=== PATIENT | male | born 1960 | race Caucasian/White ===

== ENCOUNTER → 2023-08-30 12:53 | Outpatient (BNVA) | payer SELFPAY | PROVIDERS: PCP Nurse Practitioner Family; Visit Provider Physician Assistant Surgical ==

== ENCOUNTER 2023-09-17 09:10 | Outpatient (AMB) | payer BC, SELFPAY ==
--- NOTE | 2023-09-17 09:13 | MHC.OFFVISWM ---
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 He heard about the program from his 's sister. His goal is to lose weight and achieve a healthy lifestyle. He reports first being concerned about his weight over the last 3-4 years, highest weight to date was 261. Current weight is 251.4 pounds with a BMI of 36.1. He has tried multiple methods of weight loss including fad iets, weight watchers without permanent results. He lives with his . He does not currently work. He wakes at:?730 am, and goes to bed at?1030 pm. Dinner is at 630 pm. Breakfast: skip, or banana or eggs AM snack: skip Lunch: salad w tuna or egg salad, needle grinder PM snack: skip Dinner: salmon, chicken, veg, rice, potato After dinner: salted almonds, dried fruit, apple Other snacks: rare ice cream Liquids: 24 oz water, 16 oz seltzer, rare 12 oz diet soda, no juice Alcohol/marijuana/tobacco intake: none Exercise: elliptical 45 min 3 x per week in home, stationary bike at home, does not have a gym membership GERD score: 4 ALY score: 0 ESS score: 2 QOL score: 72 PFSH Surgical History Hx laparoscopic cholecystectomy (~04/2016) Family History Father Skin cancer Social History Alcohol intake: current Comment: i -2 beer a year Patient Tobacco Use Status: Never used Tobacco Review of Systems Const All systems reviewed & are unremarkable except as noted in HPI and below Physical Exam Vital Signs: Last Vital Signs Temp 96.3 F L 09/17/23 09:21 Pulse 66 09/17/23 09:21 BP 119/78 09/17/23 09:21 Pulse Ox 92 09/17/23 09:21 Oxygen Delivery Method Room Air 09/17/23 09:21 BMI result Body Mass Index 36.1 Const General: cooperative, healthy appearing and no acute distress Orientation/consciousness: patient oriented x3 HEENT Head: Yes normal to inspection Ears: hearing grossly normal bilaterally General nose exam: Normal external nose present Face and sinus: Yes normal facial exam Eyes General: appearance normal, both eyes and all related structures Resp Effort & Inspection: normal respiratory effort Auscultation: clear to auscultation bilaterally Cardio Rate: regular rate Rhythm: regular rhythm Heart sounds: S1 normal heart sound present and S2 normal heart sound present GI Inspection: Yes normal to inspection, No distended and Yes obesity Palpation (GI): Soft to palpation, nontender and no guarding Auscultation: normal bowel sounds Skin General skin exam: no rashes or lesions noted Neuro General: patient oriented x3 Extrem General: No edema Psych Appearance: grossly normal Mental Status: mental status grossly normal Speech and movement: Normal speech and movement present Affect: normal affect Attitude: cooperative Assessment & Plan Assessment & Plan (1) Obesity (BMI 30-39.9): Code(s): E66.9 - Obesity, unspecified Plan: This is a?62 yo male who will start our MWL program to prepare for bariatric surgery.? He is being scheduled for RD initial consultations. ? Adequate sleep of 7-8 hours per night discussed, awakening at 730 am and going to bed at 1030 pm ? You stated you already have a body composition analyzer scale (Natano recommended) so be sure and check weight weekly. The best time to do this is first thing in the morning after going to the bathroom. 1. Nutritional counseling: Be sure to careful read the number of scoops per shake Start with 1 Celebrate Rebuild shake ([facility] [employer] Space, Synker, [employer]), (2 scoops in 20 oz unsweetened almond milk) at 830am-1030am 2 protein bars (Celebrate bars at [facility] [employer], Synker, [employer]) First bar at 1130am-130pm. Second bar at 330pm-530pm Dinner at 630-7pm (9 forks of protein and 9 forks of salad/vegetables). Meal to include lean meat (beef, fish, pork, turkey, chicken), cooked vegetables or a salad with olive oil and/or fruits (berries, pears, apples, kiwi). Avoid salt, breads, potatoes, rice, pasta, desserts. May have fresh berries (straw, blue, black, rasp) or an apple after dinner if needed. Try to drink 64 oz of water daily and avoid soda and juices. ?2. Each shake would be drunk slowly, like coffee in a period of 2 hours. ?3. Cut each bar in 4 pieces and eat each piece in 30 min ?to make each bar last 2 hours. ?4. I emphasized the importance of measuring accurately the food portion and measure it carefully when serving the food on the plate ?5. The meal portions include 9 full-size forks of meat and 9 full-size forks of salad. You always eat the meat portion but you can replace up to half of the forks of salad/vegetables with rice, potatoes or pasta, or a fruit ?if you like. The less you do it the better weight loss will be. ?6. One full-size fork is what can be scooped on the fork without falling aside and not what can be bit with the fork. Use regular forks like those you find in a typical restaurant. ?7.? Please send me weight measurements as soon as possible and then once a week. Always include your diet and exercise plan. Alternatively come weekly at the office for weight checks and send me the measurements. ?8. Exercise counseling: Begin by watching a stretching for beginners video. Start slowly and begin to stretch your muscles. You should do this before and after each exercise session to prevent injury. Please consider joining a gym near your home. Ask the audio/visual manager or one of the trainers how to use the machines if you are unfamiliar with them. Start elliptical with a resistance of 2. Increase resistance by 1 every 3 min to your most comfortable resistance with a max resistance of 8. Reduce the resistance by 1 every 3 minutes back down to 2 and repeat cycles for 300 calories. (You can certainly use your elliptical machine in your home) Alternatively, start treadmill with a speed of 3.0 and incline of 0, increasing incline by 1 every 3 minutes to the highest comfortable level (max 6 for now) then decrease in the same fashion. Repeat process to a goal of 300 calories. Goal of 2000 calories burned or more weekly. You may also consider use of the stationary bike. The easiest would be to chose the fat-burn or interval training program on the machine and do this until you reach the 300 calorie goal. Alternatively, you can manually adjust the resistance in a similar fashion as mentioned above, (resistance of 2-8 with a goal speed of 12 mph). Tracking calories is essential. 9. Alternatively start walking outside daily, tracking calories with a goal of 300 calories per day, daily. You can download the bravo [employer] which can track your time, distance and calories while walking outside. You press start in the bravo when you start and then stop when you are finished. 10.? It is important to communicate by text with me weekly 11. Please do not hesitate to text with any questions or concerns. 12. Discussed and answered all questions regarding?obtained consent to participate in the [place] [facility]?Registry. 13. Please follow the diet plan exactly, without any change. If you do not like something about the plan or you feel hungry, you need to communicate with me so I can help you revise the plan. You should not change the plan yourself. Text me at [phone] 14. Goal is to lose at least 10-12 pounds in the first month 15. The current plan would require 14 bars per week and 14 servings of protein powder per week. Patient is morbidly obese and is not considered stable at this time.?I spent a total of 70 minutes reviewing/updating records, examining the patient and counseling the patient on weight management as detailed above. Coding Level of Care Code New Pt Level 5 (24185) Diagnoses Obesity (BMI 30-39.9) E66.9 Time Spent (min) 70
[2023-09-17 09:21] VITALS: BP 119/78; PULSE 66; TEMP 35.7; O2SAT 92; BMI 36.1
== END 2023-09-17 10:44 | disposition home or self-care (01) ==
PROVIDERS: PCP Nurse Practitioner Family; Visit Provider Physician Assistant Surgical
DX: E66.9 Obesity, unspecified (principal); Z68.36 Body mass index [BMI] 36.0-36.9, adult
CPT/HCPCS: 99205

== ENCOUNTER → 2023-09-17 09:10 | Outpatient (BNVA) | payer BC, SELFPAY | PROVIDERS: PCP Nurse Practitioner Family; Visit Provider Physician Assistant Surgical ==

== ENCOUNTER 2023-10-01 10:03 | Outpatient (AMB) | payer BC, SELFPAY ==
--- NOTE | 2023-10-01 09:33 | MHC.AMNUTRGE ---
Intake Intake Visit Reasons: VIDEO Initial Nutrition MWL Allergies No Known Allergies Allergy (Verified 09/17/23 09:24) HPI Nutrition Presentation Details MWL Reason for consult elevated BMI Diet Assmnt Details shake - really enjoys this 12pm bar - wants to substitute bar with tamazight yogurt or whole foods 3pm bar - happy with 6pm dinner Per PA 9 forks of protein, 9 forks of veg. Pt feels this is not enough , would love to eat more veg States sugar is a big trigger. Exercise: Daily , elliptical and bike switches back and forth between the two Patient identifies of his major issues is related to portion control Previous weight loss methods attempted WW for years but felt the tracking was unsustainable. Dietary counseling reduction Diagnosis Nutrition problem #1 overweight/obesity As related to (etiology) #1 excess energy intake and physical inactivity As evidenced by (sign/symptom) #1 high BMI Monitoring/Goals Nutrition problem monitoring total energy intake, level of knowledge/skill, total PRO intake, total CHO intake and weight Outcome progress progressing Learning/Education Readiness to learn excellent Stages of change action Educational materials provided Yes Most Recent Diabetes Results: No Data to Display [facility] Surgical History Hx laparoscopic cholecystectomy (~04/2016) Family History Father Skin cancer Social History Alcohol intake: current Comment: i -2 beer a year Patient Tobacco Use Status: Never used Tobacco Assessment & Plan Assessment & Plan (1) Obesity (BMI 30-39.9): Code(s): E66.9 - Obesity, unspecified Plan continue follow up with PA Patient Instructions: Educated on the hunger scale, mindful eating/intro to intuitive eating, filling up on veg and lean proteins and carbs in appropriate portions. encouraged enjoyable movement . will follow up with Jose Miguel for the remainder of the program. Telehealth Telehealth Location of provider rendering services: practice address Location of patient: address on file Patient Identification confirmed using: Name, : Yes Telehealth method: voice only Patient verbally consented to treatment: Yes Patient verbally consented to billing insurance company: Yes Patient informed of any privacy concerns related to visit: Yes Minutes spent on Phone/Video with Pt.: 60 Coding Level of Care Code Nutr Indiv Intake (60080) Diagnoses Obesity (BMI 30-39.9) E66.9 Time Spent (min) 60
== END 2023-10-01 13:18 | disposition home or self-care (01) ==
LOC: HO.HBS 10:03
PROVIDERS: PCP Nurse Practitioner Family; Visit Provider Dietitian, Registered
DX: E66.9 Obesity, unspecified (principal)

== ENCOUNTER → 2023-10-01 10:03 | Outpatient (BNVA) | payer BC, SELFPAY | PROVIDERS: PCP Nurse Practitioner Family; Visit Provider Dietitian, Registered | DX: E66.9 Obesity, unspecified (principal); Z71.3 Dietary counseling and surveillance | CPT/HCPCS: 97802 ==

== ENCOUNTER 2023-10-16 11:36 | Outpatient (AMB) | payer SELFPAY ==
[2023-10-16 10:58] VITALS: BMI 34.2
--- NOTE | 2023-10-16 10:58 | A.OFFVIS_ITS ---
Intake VS Expanded 10/16/23 10:58 Height 5 ft 10 in Weight 238 lb 6.4 oz BMI 34.2 Body Fat % 35.9 Body Fat Mass 85.5 Fat Free Mass 152.8 Visceral Fat Rating 17 Body Water % 46.3 Body Water Mass 110.3 Muscle Mass/Score 145.2 Intake Visit Reasons: (TV) F/U MWL Allergies No Known Allergies Allergy (Verified 09/17/23 09:24) HPI HPI Comments History of Present Illness Details Patient is a pleasant 62-year-old male who returns to the office today in follow-up for the metabolic weight loss clinic. He was initially seen on 09/17/2023 with a weight of 251.4 lb and a BMI of 36.1. Weight today is 238.4 lb with a BMI of 34.2. There has been a 13 lb weight loss, or 5.1% total body weight loss. He does not like the protein bars. Feels as though the bars are not real food . Tastes like a snickers bar. [place] like he was starving by the time for dinner. When he was away on vacation, he was eating out for dinner. He would be eating a little later and would have more than 9 forks of food. meal plan: 1 Celebrate Rebuild shake (2 scoops in 20 oz unsweetened almond milk) at 830am- 1030am 2 protein bars First bar at 1130am-130pm. Second bar at 330pm-530pm Dinner at 630-7pm (9 forks of protein and 9 forks of salad/vegetables). May have fresh berries (straw, blue, black, rasp) or an apple after dinner if needed. Drinking 48-64 oz water, no soda or juice exercise plan: 400 calories daily, elliptical, bike, ro wing machine PFSH Surgical History Hx laparoscopic cholecystectomy (~04/2016) Family History Father Skin cancer Social History Alcohol intake: current Comment: i -2 beer a year Patient Tobacco Use Status: Never used Tobacco Assessment & Plan Assessment & Plan (1) Obesity (BMI 30-39.9): Code(s): E66.9 - Obesity, unspecified Plan: change meal plan to exclude bars and have 2 meals 1 Celebrate Rebuild shake (2 scoops in 20 oz unsweetened almond milk) at 830am- 1030am meal 7 forks protein and 79 forks veg Dinner at 630-7pm (11 forks of protein and 12 forks of salad/vegetables). May have fresh berries (straw, blue, black, rasp) or an apple after dinner if needed. Continue exercise plan f/u 1 month Telehealth Telehealth Location of provider rendering services: practice address Location of patient: address on file Patient Identification confirmed using: Name, : Yes Telehealth method: voice only Patient verbally consented to treatment: Yes Patient verbally consented to billing insurance company: Yes Patient informed of any privacy concerns related to visit: Yes Minutes spent on Phone/Video with Pt.: 30 Coding Level of Care Code Tele Est Pt Level 3 (71761) Diagnoses Obesity (BMI 30-39.9) E66.9 Time Spent (min) 35
== END 2023-10-16 11:40 | disposition home or self-care (01) ==
LOC: HO.HBS 11:36
PROVIDERS: PCP Nurse Practitioner Family; Visit Provider Physician Assistant Surgical
DX: E66.9 Obesity, unspecified (principal); Z68.34 Body mass index [BMI] 34.0-34.9, adult
CPT/HCPCS: 99443

== ENCOUNTER → 2023-10-16 11:36 | Outpatient (BNVA) | payer BC, SELFPAY | PROVIDERS: PCP Nurse Practitioner Family; Visit Provider Physician Assistant Surgical ==

== ENCOUNTER 2023-11-15 09:57 | Outpatient (AMB) | payer BC, SELFPAY ==
--- NOTE | 2023-11-15 08:31 | A.OFFVIS_ITS ---
Intake VS Expanded 11/15/23 08:32 Height 5 ft 10 in Weight 230 lb 3.2 oz BMI 33.0 Body Fat % 34.1 Body Fat Mass 78.4 Fat Free Mass 151.6 Visceral Fat Rating 16 Body Water % 47.6 Body Water Mass 109.5 Muscle Mass/Score 144 Intake Visit Reasons: (TV) F/U MWL Remote Coders Required: No Allergies No Known Allergies Allergy (Verified 09/17/23 09:24) Medication List - Last Reconciled 11/15/23 by RAY Salazar No Known Home Meds HPI HPI Comments History of Present Illness Details Patient is a pleasant 62-year-old male who returns to the office today in follow-up for the metabolic weight loss clinic. He was initially seen on 09/17/2023 with a weight of 251.4 lb and a BMI of 36.1. Weight today is 230.2 lb with a BMI of 33. There has been a 21.2 lb weight loss, or 8.4% total body weight loss. He states things are going well. He is scheduled for an overseas visit tomorrow until mid november. No further cravings for carbs meal plan: change meal plan to exclude bars and have 2 meals per pt request 1 Celebrate Rebuild shake (2 scoops in 20 oz unsweetened almond milk) at 830am- 1030am meal 7 forks protein and 79 forks veg Dinner at 630-7pm (11 forks of protein and 12 forks of salad/vegetables). May have fresh berries (straw, blue, black, rasp) or an apple after dinner if needed. Drinking 48-64 oz water, no soda or juice exercise plan: 500 calories daily, elliptical, rowing m gailine [facility] Surgical History Hx laparoscopic cholecystectomy (~04/2016) Family History Father Skin cancer Social History Alcohol intake: current Comment: i -2 beer a year Patient Tobacco Use Status: Never used Tobacco Assessment & Plan Assessment & Plan (1) Obesity (BMI 30-39.9): Code(s): E66.9 - Obesity, unspecified Plan: Patient is making excellent progress. He is learning how to accommodate, as an example he was hungry at lunch and had a bigger meal at lunch and a lesser meal at dinner. At the [employer] celebration, he over ate and did not feel well and thereby realized he can not and should not overeat like that. He is scheduled to go overseas to [facility] with his and will be doing a significant amount of walking. His current exercise plan is fantastic. He is making excellent progress and is congratulated on his determination. He will return to the office upon his return from [facility]. Telehealth Telehealth Location of provider rendering services: practice address Location of patient: address on file Patient Identification confirmed using: Name, : Yes Telehealth method: voice only Patient verbally consented to treatment: Yes Patient verbally consented to billing insurance company: Yes Patient informed of any privacy concerns related to visit: Yes Minutes spent on Phone/Video with Pt.: 12 Coding Level of Care Code Tele Est Pt Level 3 (19996) Diagnoses Obesity (BMI 30-39.9) E66.9 Time Spent (min) 15
[2023-11-15 08:32] VITALS: BMI 33.0
== END 2023-11-15 10:21 | disposition home or self-care (01) ==
PROVIDERS: PCP Nurse Practitioner Family; Visit Provider Physician Assistant Surgical
DX: E66.9 Obesity, unspecified (principal); Z68.33 Body mass index [BMI] 33.0-33.9, adult
CPT/HCPCS: 99442

== ENCOUNTER → 2023-11-15 09:57 | Outpatient (BNVA) | payer BC, SELFPAY | PROVIDERS: PCP Nurse Practitioner Family; Visit Provider Physician Assistant Surgical | DX: E66.9 Obesity, unspecified (principal) ==

== ENCOUNTER 2023-12-24 14:54 | Outpatient (AMB) | payer BC, SELFPAY ==
[2023-12-24 08:31] VITALS: BMI 32.9
--- NOTE | 2023-12-24 08:31 | MHC.OFFVISWM ---
Intake VS Expanded 12/24/23 08:31 Height 5 ft 10 in Weight 229 lb 3.2 oz BMI 32.9 Body Fat % 34 Body Fat Mass 77.9 Fat Free Mass 151.4 Visceral Fat Rating 16 Body Water % 47.6 Body Water Mass 109 Muscle Mass/Score 13.8 Intake Visit Reasons: (TV) F/U MWL Allergies No Known Allergies Allergy (Verified 09/17/23 09:24) HPI HPI Comments History of Present Illness Details Patient is a pleasant 63-year-old male who returns to the office today in follow-up for the metabolic weight loss clinic. He was initially seen on 09/17/2023 with a weight of 251.4 lb and a BMI of 36.1. Weight today is 229.2 lb with a BMI of 32.9. There has been a 22.2 lb weight loss, or 8.8% total body weight loss. He states things are going well. He has had increase in dried fruit at night and he is trying to avoid excess as well as mindful of his intake. Dropped down two pant sizes. meal plan: change meal plan to exclude bars and have 2 meals per pt request 1 Celebrate Rebuild shake (2 scoops in 20 oz unsweetened almond milk) at 830am-1030am meal 7 forks protein and 7 forks veg Dinner at 630-7pm (11 forks of protein and 12 forks of salad/vegetables). May have fresh berries (straw, blue, black, rasp) or an apple after dinner if needed. Drinking 48-64 oz water, no soda or juice exercise plan: 500 calories daily, elliptical, rowing machine [facility] Surgical History Hx laparoscopic cholecystectomy (~04/2016) Family History Father Skin cancer Social History Alcohol intake: current Comment: i -2 beer a year Patient Tobacco Use Status: Never used Tobacco Physical Exam Vital Signs: BMI result Body Mass Index 32.9 Assessment & Plan Assessment & Plan (1) Obesity (BMI 30-39.9): Code(s): E66.9 - Obesity, unspecified Plan: Patient is making progress. He is more mindful of what he is eating. He is exercising consistently. We will make some small changes to his meal plan: 1 Celebrate Cornelio benítez (2 scoops in 12 oz unsweetened almond milk) at 830am-1030am meal 7 forks protein and 7 forks veg Dinner at 630-7pm (10 forks of protein and 10 forks of salad/vegetables). May have fresh berries (straw, blue, black, rasp) or an apple after dinner if needed. Continue current exercise routine. Return to clinic 3-4 weeks. Telehealth Telehealth Location of provider rendering services: practice address Location of patient: address on file Patient Identification confirmed using: Name, : Yes Telehealth method: voice only Patient verbally consented to treatment: Yes Patient verbally consented to billing insurance company: Yes Patient informed of any privacy concerns related to visit: Yes Minutes spent on Phone/Video with Pt.: 20 Coding Level of Care Code Tele Est Pt Level 3 (21177) Diagnoses Obesity (BMI 30-39.9) E66.9 Time Spent (min) 20
== END 2023-12-24 15:00 | disposition home or self-care (01) ==
LOC: HO.HBS 14:54
PROVIDERS: PCP Nurse Practitioner Family; Visit Provider Physician Assistant Surgical
DX: E66.9 Obesity, unspecified (principal); Z68.32 Body mass index [BMI] 32.0-32.9, adult
CPT/HCPCS: 99442

== ENCOUNTER → 2023-12-24 14:54 | Outpatient (BNVA) | payer BC, SELFPAY | PROVIDERS: PCP Nurse Practitioner Family; Visit Provider Physician Assistant Surgical ==

== ENCOUNTER 2024-01-27 10:50 | Outpatient (AMB) | payer BC, SELFPAY ==
[2024-01-27 09:27] VITALS: BMI 32.3
--- NOTE | 2024-01-27 09:27 | A.OFFVIS_ITS ---
VS Expanded 01/27/24 09:27 Height 5 ft 10 in Weight 225 lb 6 oz BMI 32.3 Intake Visit Reasons: (TV) F/U MWL Allergies No Known Allergies Allergy (Verified 09/17/23 09:24) HPI Comments Details: Patient is a pleasant 63-year-old male who returns to the office today in follow-up for the metabolic weight loss clinic. He was initially seen on 09/17/2023 with a weight of 251.4 lb and a BMI of 36.1. Weight today is 225.6 lb with a BMI of 32.3. There has been a 25.8 lb weight loss, or 10.2% total body weight loss. He states things are going well. He is feeling hungry later in the day. meal plan: change meal plan to exclude bars and have 2 meals per pt request 1 Celebrate Rebuild shake (2 scoops in 12 oz unsweetened almond milk) at 830am- 1030am meal 7 forks protein and 7 forks veg Dinner at 630-7pm (10 forks of protein and 10 forks of salad/vegetables). May have fresh berries (straw, blue, black, rasp) or an apple after dinner if needed. Drinking 48-64 oz water, no soda or juice exercise plan: 500 calories daily, elliptical, rowing machine PFSH Surgical History Hx laparoscopic cholecystectomy (~04/2016) Family History Father Skin cancer Social History Alcohol intake: current Comment: i -2 beer a year Patient Tobacco Use Status: Never used Tobacco Telehealth Telehealth Telehealth Platform: Telephone Location of provider rendering services: practice address Location of patient: address on file Patient Identification confirmed using: Name, : Yes Telehealth method: voice only Patient verbally consented to treatment: Yes Patient verbally consented to billing insurance company: Yes Patient informed of any privacy concerns related to visit: Yes Minutes spent on Phone/Video with Pt.: 15 Assessment & Plan Assessment & Plan (1) Obesity (BMI 30-39.9): Code(s): E66.9 - Obesity, unspecified Category: Medical Plan: Overall, making improvements. We have made several recommendations including Splitting his meals to be 8 forks of protein and 8 forks of vegetables each Add an apple in the afternoon Incorporate weight training with knee push ups Less diet ice tea Removal of dried fruit Plan for 1 last appointment in approximately 4-5 weeks.
== END 2024-01-27 10:56 | disposition home or self-care (01) ==
LOC: HO.HBS 10:51
PROVIDERS: PCP Nurse Practitioner Family; Visit Provider Physician Assistant Surgical
DX: E66.9 Obesity, unspecified (principal); Z68.32 Body mass index [BMI] 32.0-32.9, adult
CPT/HCPCS: 99442

== ENCOUNTER → 2024-01-27 10:50 | Outpatient (BNVA) | payer BC, SELFPAY | PROVIDERS: PCP Nurse Practitioner Family; Visit Provider Physician Assistant Surgical ==

== ENCOUNTER 2024-03-02 10:21 | Outpatient (AMB) | payer BC, SELFPAY ==
--- NOTE | 2024-03-02 08:24 | A.OFFVIS_ITS ---
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 He was initially seen on 09/17/2023 with a weight of 251.4 lb and a BMI of 36.1. Weight today is 222.4 lb with a BMI of 32.3. There has been a 29 lb weight loss, or 11.5% total body weight loss. He states things are going well. He is feeling hungry later in the day. He does eat out frequently and is scheduled for another vacation 2 week. meal plan: change meal plan to exclude bars and have 2 meals per pt request 1 Celebrate Rebuild shake (2 scoops in 12 oz unsweetened almond milk) at 830am- 1030am meal 8 forks protein and 8 forks veg Dinner at 630-7pm (8 forks of protein and 8 forks of salad/vegetables). May have fresh berries (straw, blue, black, rasp) or an apple after dinner if needed. Drinking 48-64 oz water, no soda or juice exercise plan: 500 calories daily, elliptical, rowing machine PFSH Surgical History Hx laparoscopic cholecystectomy (~04/2016) Family History Father Skin cancer Social History Alcohol intake: current Comment: i -2 beer a year Patient Tobacco Use Status: Never used Tobacco Telehealth Telehealth Telehealth Platform: Telephone Location of provider rendering services: practice address Location of patient: address on file Patient Identification confirmed using: Name, : Yes Telehealth method: voice only Patient verbally consented to treatment: Yes Patient verbally consented to billing insurance company: Yes Patient informed of any privacy concerns related to visit: Yes Minutes spent on Phone/Video with Pt.: 15 Assessment & Plan Assessment & Plan (1) Obesity (BMI 30-39.9): Code(s): E66.9 - Obesity, unspecified Category: Medical Plan: Patient has done very well in our medical weight loss program. He is now more mindful of what he is eating as well as how much he is eating. He is weighing himself consistently. He is consistent and purposeful in his exercise routine. He may return to the program at any time in the future if he wishes.
[2024-03-02 08:25] VITALS: BMI 31.9
== END 2024-03-02 10:23 | disposition home or self-care (01) ==
LOC: HO.HBS 10:21
PROVIDERS: PCP Nurse Practitioner Family; Visit Provider Physician Assistant Surgical
DX: E66.9 Obesity, unspecified (principal); Z68.31 Body mass index [BMI] 31.0-31.9, adult
CPT/HCPCS: 99442

== ENCOUNTER → 2024-03-02 10:21 | Outpatient (BNVA) | payer BC, SELFPAY | PROVIDERS: PCP Nurse Practitioner Family; Visit Provider Physician Assistant Surgical | DX: E66.9 Obesity, unspecified (principal) ==